=== PATIENT | male | born 1995 | race American Indian/Alaskan Native ===

== ENCOUNTER 2018-08-17 12:31 | Emergency (ER) | payer MEDICAID, OTHER ==
--- NOTE | 2018-08-17 12:40 | EDPD ---
Arrival/HPI - General Time Seen by Provider: 08/17/18 12:39 Historian: Patient - History of Present Illness Narrative History of Present Illness (Text): 08/17/18 12:39 22 y/o male, no significant pmh, nkda, c/o toothache x 3 days. Pt. stated that he has toothache from wisdom tooth, lt. lower molar region, seen at another ER yesterday and given motrin/amoxicillin, pain controlled, here thought this hospital has dentist, no pain at this time, no fever or chills, no facial or jaw swelling, no night sweat, no other medical or psychological complaints. Past Medical History - Provider Review Nursing Documentation Reviewed: Yes - Surgical History Surgeries: No Surgical History Family/Social History - Physician Review Nursing Documentation Reviewed: Yes Family/Social History: Unknown Family HX Allergies/Home Meds Allergies/Adverse Reactions: Allergies No Known Allergies Allergy (Verified 08/17/18 13:41) Pediatric Review of Systems - Review of Systems Constitutional: absent: Fatigue, Fevers Eyes: absent: Vision Changes ENT: absent: Hearing Changes Respiratory: absent: SOB, Cough Cardiovascular: absent: Chest Pain Gastrointestinal: absent: Abdominal Pain, Diarrhea, Nausea, Vomitting Genitourinary Male: absent: Dysuria Musculoskeletal: absent: Arthralgias, Back Pain Skin: absent: Rash, Pruritis, Cellulitis Neurologic: absent: Headache Psychiatric: absent: Anxiety, Depression Pediatric Physical Exam - Systems Exam Head: Present: Atraumatic, Normal [place], Normocephalic Pupils: Present: PERRL Extroacular Muscles: Present: EOMI Conjunctiva: Present: Normal Ears: Present: Normal, NORMAL TM, Normal Canal Mouth: Present: Moist Mucous Membranes, Other (visible wisdom tooth eruption noted, no gingivitis or gingival abscess, no facial cellulitis. ) Pharnyx: Present: Normal Neck: Present: Normal Range of Motion Respiratory/Chest: Present: Clear to Auscultation, Good Air Exchange. No: Respiratory Distress, Accessory Muscle Use Cardiovascular: Present: Regular Rate and Rhythm, Normal S1, S2. No: Murmurs Abdomen: Present: Normal Bowel Sounds. No: Tenderness, Distention, Peritoneal Signs Back: Present: GCS, CN, SP Upper Extremity: Present: Normal Inspection. No: Cyanosis, Edema Lower Extremity: Present: Normal Inspection. No: Edema Neurological: Present: GCS=15, CN II-XII Intact, Speech Normal Skin: Present: Warm, Dry, Normal Color. No: Rashes Lymphatic: Present: OX3, NI, NC Psychiatric: Present: Alert, Normal Insight, Normal Concentration Medical Decision Making ED Course and Treatment: 08/17/18 13:28 -NO facial swelling, no pain at this time, advised he should see dentist. -Discharge home with education on continue your medication at home, follow up with your own pmd and dentist within 2 days, return to the ER for any new or worsening signs or symptoms. - RAD Interpretation Sous Chef: Radiologist - PA / REAL ESTATE PHOTOGRAPHER / Resident Statement MD/DO has reviewed & agrees with the documentation as recorded. Disposition/Present on Arrival - Present on Arrival Any Indicators Present on Arrival: No History of DVT/PE: No History of Uncontrolled Diabetes: No Urinary Catheter: No History of Decub. Ulcer: No History Surgical Site Infection Following: None - Disposition Have Diagnosis and Disposition been Completed?: Yes Diagnosis: Toothache Disposition: HOME/ ROUTINE Disposition Time: 13:30 Patient Plan: Discharge Patient Problems: Current Active Problems Problem Status Onset Toothache Acute Condition: GOOD Additional Instructions: -Discharge home with education on continue your medication at home, follow up with your own pmd and dentist within 2 days, return to the ER for any new or worsening signs or symptoms. Referrals: [facility] [place] - Follow up with primary
[2018-08-17 13:21] VITALS: BMI 25.7
[2018-08-17 13:46] VITALS: BP 117/66; PULSE 81; RESP 18; TEMP 98.5; O2SAT 98
== END 2018-08-17 13:57 | disposition home or self-care (01) ==
LOC: ED 12:31
DX: K08.89 Other specified disorders of teeth and supporting structures (principal)